=== PATIENT | male | born 1995 | race Caucasian/White ===

== ENCOUNTER 2021-10-25 21:39 | Emergency (ER) | payer OTHER ==
[2021-10-25 21:51] VITALS: BP 98/55; PULSE 61; RESP 18; TEMP 98; BMI 29.0
[2021-10-25] MEDS ORDERED: DOXYCYCLINE HYCLATE 100 MG CAPSULE PO ONE ×2 (22:43→22:49)
[2021-10-25] MEDS ORDERED: cefTRIAXone SODIUM 1 GM VIAL ONE (22:50)
[2021-10-25] MEDS ORDERED: LIDOCAINE HCL/PF 1% SDV 5ML VIAL ONE (22:51)
[2021-10-25 22:55] LABS: PH,URINE 5.5 (5.0-8.0); URINE APPEARANCE CLEAR; URINE BILIRUBIN NEGATIVE (NEGATIVE); URINE COLOR YELLOW; URINE GLUCOSE (UA) NEGATIVE (NEGATIVE); URINE KETONE TRACE (NEGATIVE); URINE LEUK ESTERASE NEGATIVE (NEGATIVE); URINE NITRITE NEGATIVE (NEGATIVE); URINE PROTEIN NEGATIVE (NEGATIVE); URINE UROBILINOGEN 0.2 mg/dL (0.2-1.0)
== END 2021-10-25 23:43 | disposition home or self-care (01) ==
LOC: JER 21:39
DX: N45.3 Epididymo-orchitis (principal)
CPT/HCPCS: 36415; 76870-TC; 81003; 87086; 87491; 87591; 99284-25